=== PATIENT | female | born 1985 | race Two or more races ===

== ENCOUNTER 2022-02-22 14:00 | Inpatient (IN) | payer OTHER ==
[~2022-02-22] VITALS: Ht 162.6 cm; Wt 68.9 kg
[2022-03-01] MEDS ORDERED: PRENATAL TABLE1 EAC1 PO (06:46)
[2022-03-04] MEDS ORDERED: IBU800 MG PO (11:35)
[2022-03-04] MEDS ORDERED: ACETAMINOPHEN500 M1 PO (11:36)
[2022-03-04] MEDS ORDERED: SURFAK240 M1 PO (11:36)
[2022-03-04] MEDS ORDERED: GAS RELIEF125 MG PO (11:37)
== END 2022-03-04 14:02 | disposition home or self-care (01) | DRG 788 ==
LOC: LDR 03-01 06:06 → SURG-SUITE 03-01 06:06 → LDR 03-01 14:00 → SURG-SUITE 03-01 16:20
PROVIDERS: ADMIT Specialist; ATTEND Specialist
PROC: 4A1HXCZ Monitoring of Products of Conception, Cardiac Rate, External Approach (ICD-10-PCS; 2022-03-01)
PROC: 10D00Z1 Extraction of Products of Conception, Low, Open Approach (ICD-10-PCS; principal; 2022-03-01 22:00)
DX: O62.1 Secondary uterine inertia (principal); Z20.822 Contact with and (suspected) exposure to COVID-19; Z37.0 Single live birth; Z3A.40 40 weeks gestation of pregnancy

== ENCOUNTER → 2025-03-13 | Outpatient (CLI) | payer OTHER ==
[~2025-03-13] MED LIST: ACETAMINOPHEN500 M1 PO; GAS RELIEF125 MG PO; IBU800 MG PO; PRENATAL TABLE1 EAC1 PO; SURFAK240 M1 PO
== END | disposition home or self-care (01) ==
LOC: PRENATAL 03-12 19:08
PROVIDERS: ATTEND Obstetrics & Gynecology Maternal & Fetal Medicine
DX: O36.80X0 Pregnancy with inconclusive fetal viability, not applicable or unspecified (principal); Z36.82 Encounter for antenatal screening for nuchal translucency; O36.1999 Maternal care for other isoimmunization, unspecified trimester, other fetus; Z14.8 Genetic carrier of other disease; O34.219 Maternal care for unspecified type scar from previous cesarean delivery; Z3A.12 12 weeks gestation of pregnancy

== ENCOUNTER 2025-06-11 07:37 | Outpatient (CLI) | payer OTHER | END 2025-06-11 08:08 | disposition home or self-care (01) | LOC: PRENATAL 07:37 | PROVIDERS: ATTEND Obstetrics & Gynecology Maternal & Fetal Medicine | DX: O44.00 Complete placenta previa NOS or without hemorrhage, unspecified trimester (principal); O36.1999 Maternal care for other isoimmunization, unspecified trimester, other fetus; O34.219 Maternal care for unspecified type scar from previous cesarean delivery; Z3A.25 25 weeks gestation of pregnancy ==

== ENCOUNTER → 2025-08-15 12:50 | Outpatient (CLI) | payer OTHER | END | disposition home or self-care (01) | LOC: PRENATAL 12:50 | PROVIDERS: ATTEND Obstetrics & Gynecology Maternal & Fetal Medicine | DX: O26.849 Uterine size-date discrepancy, unspecified trimester (principal); O36.8130 Decreased fetal movements, third trimester, not applicable or unspecified; O36.1999 Maternal care for other isoimmunization, unspecified trimester, other fetus; O34.219 Maternal care for unspecified type scar from previous cesarean delivery; O09.529 Supervision of elderly multigravida, unspecified trimester; Z3A.35 35 weeks gestation of pregnancy ==

== ENCOUNTER 2025-09-08 08:15 | Inpatient (IN) | payer OTHER ==
[~2025-09-08] VITALS: Ht 162.6 cm; Wt 69.9 kg
[2025-09-08 10:48] LABS: URINE APPEARANCE Cloudy; URINE BILIRRUBIN Negative (NEGATIVE); URINE BLOOD Negative; URINE COLOR Yellow; URINE GLUCOSE Negative (NEGATIVE); URINE KETONE Negative (NEGATIVE); URINE LEUKOCYTE Moderate; URINE NITRATE Negative; URINE PROTEIN Negative (NEGATIVE); URINE UROBILINOGEN 1.0 E.U./dl
[2025-09-08 10:52] LABS: URINE BACTERIA 4431.4 uL (0.0-1933); URINE EPITHELIAL CELLS 177.3 uL (0.0-38.8); URINE RBC 3.5 uL (0.0-20.8); URINE WBC 179.3 uL (0.0-23.2)
[2025-09-08 11:16] LABS: BASO % 0.2 % (0.1-1.2); EOS # 0.05 (0.04-0.54); EOS % 0.5 % (0.7-7.0); LYMPH # 2.02 (1.18-3.74); LYMPH % 20.2 % (19.3-53.1); MEAN PLATELET VOLUME 10.30 fl (9.4-12.4); MONO # 0.52 (0.24-0.82); MONO % 5.2 % (4.7-12.5); NEUT # 7.35 (1.56-6.13); NEUT % 73.5 % (34.0-71.1); RED CELL DISTRIBUTION WIDTH 12.8 % (11.6-14.4)
[2025-09-08 11:36] LABS: INR < 0.93
[2025-09-08 11:39] LABS: URINE CAST 0.29 uL (0.0-1.40); URINE CRYSTALS FEW /HPF
[2025-09-08 12:09] LABS: ALT/SGPT 17.0 U/L (12-78); AST/SGOT 17.0 U/L (15-37); BILIRUBIN TOTAL 0.37 mg/dL (0.3-1.2); BUN CREA RATIO 19.0 (7.0-25.0); CREATININE SERUM 0.42 mg/dL (0.55-1.02); GFR 169.77; GLOBULINA 3.3 G/DL (2.4-3.5); GLUCOSE FASTING 73.0 mg/dL (65-100); OSMOLALITY SERUM 278.0 MOSM/KG (275-295)
[2025-09-16 09:21] VITALS: BP 113/76
[2025-09-16] MEDS ORDERED: OXYTOCIN 1,000 ML IV SCH (14:30)
[2025-09-16] MEDS ORDERED: PROMETHAZINE HCL 25 MG/ML AMPUL IV PRN (14:30)
[2025-09-16] MEDS ORDERED: KETOROLAC TROMETHAMINE 30 MG VIAL IV PRN (14:30)
[2025-09-16] MEDS ORDERED: MORPHINE SULFATE 4 MG/ML CARTRIDGE IV PRN (14:45)
[2025-09-16] MEDS ORDERED: CEFAZOLIN SODIUM 1,000 MG VIAL IV ONE (15:15)
[2025-09-16] MEDS ORDERED: OXYTOCIN 20 UNITS/500ML RL PIGGYBAG IV ONE (15:15)
[2025-09-16] MEDS ORDERED: ERYTHROMYCIN BASE OPHT 1GM EACH TUBE OP ONE (15:15)
[2025-09-16] MEDS ORDERED: OXYTOCIN 10 UNITS/ML VIAL ONE (17:05)
[2025-09-16 17:33] VITALS: BP 109/72
[2025-09-16 22:08] LABS: BASO % 0.1 % (0.1-1.2); EOS # 0.00 (0.04-0.54); EOS % 0.0 % (0.7-7.0); LYMPH # 1.83 (1.18-3.74); LYMPH % 10.7 % (19.3-53.1); MEAN PLATELET VOLUME 11.00 fl (9.4-12.4); MONO # 0.58 (0.24-0.82); MONO % 3.4 % (4.7-12.5); NEUT # 14.69 (1.56-6.13); NEUT % 85.5 % (34.0-71.1); RED CELL DISTRIBUTION WIDTH 12.9 % (11.6-14.4)
[2025-09-17 00:56] VITALS: BP 98/60
[2025-09-17] MEDS ORDERED: ACETAMINOPHEN WITH CODEINE 1 UDTAB TABLET PO PRN (07:00)
[2025-09-17 08:26] VITALS: BP 92/55
[2025-09-17] MEDS ORDERED: DOCUSATE SODIUM 100MG CAP PO SCH (09:00)
[2025-09-17] MEDS ORDERED: SIMETHICONE 125 MG CAPSULE PO SCH (09:00)
[2025-09-17 14:01] VITALS: BP 100/65
[2025-09-17 16:00] VITALS: BP 112/70
[2025-09-18 03:21] VITALS: BP 105/70
[2025-09-18 09:23] VITALS: BP 109/73
[2025-09-18] MEDS ORDERED: IBU800 MG PO (16:14)
[2025-09-18] MEDS ORDERED: SENOKOT-S TABL1 EACH PO (16:14)
[2025-09-18] MEDS ORDERED: SIMETHICONE125 M1 PO (16:15)
== END 2025-09-18 16:41 | disposition home or self-care (01) | DRG 788 ==
LOC: OB/GYN 09-16 07:00 → O/R 09-16 09:00 → OB/GYN 09-16 14:41
PROVIDERS: ADMIT Student in an Organized Health Care Education/Training Program; ATTEND Student in an Organized Health Care Education/Training Program
PROC: 4A1HXCZ Monitoring of Products of Conception, Cardiac Rate, External Approach (ICD-10-PCS; 2025-09-16)
PROC: 10D00Z1 Extraction of Products of Conception, Low, Open Approach (ICD-10-PCS; principal; 2025-09-16 07:00)
DX: O34.211 Maternal care for low transverse scar from previous cesarean delivery (principal); Z3A.39 39 weeks gestation of pregnancy; O62.1 Secondary uterine inertia; Z37.0 Single live birth